=== PATIENT | male | born 1970 | race Caucasian/White ===

== ENCOUNTER 2022-05-13 14:03 | Emergency (ER) | payer BC ==
[~2022-05-13] VITALS: Ht 177.8 cm; Wt 84.6 kg
[2022-05-13 14:36] VITALS: BP 152/97
[2022-05-13 14:45] VITALS: BP 155/85
[2022-05-13 15:00] VITALS: BP 137/85
[2022-05-13 16:42] VITALS: BP 137/85
== END 2022-05-13 16:55 | disposition home or self-care (01) | DRG 605 ==
LOC: ED 14:03
DX: S30.0XXA Contusion of lower back and pelvis, initial encounter (principal)